=== PATIENT | female | born 1975 | race Caucasian/White ===

== ENCOUNTER 2017-02-18 10:56 | Emergency (ER) | payer MEDICAID, OTHER ==
[~2017-02-18] VITALS: Ht 167.6 cm; Wt 80.0 kg
[~2017-02-18 10:56] MED LIST: FLAG500T PO; FLOVENT110 MCG/A INH
[2017-02-18 10:57] VITALS: BP 132/83; PULSE 88; RESP 16; TEMP 98.1; O2SAT 99
[2017-02-18] MEDS ORDERED: SODIUM CHLOR 0.9% 1000 ML INJ 1,000 ML IV SCH (11:22)
[2017-02-18] MEDS ORDERED: SODIUM CHLORIDE 0.9% FLUSH 10 ML FLUSH IV FLUSH PRN (11:30)
[2017-02-18] MEDS ORDERED: MORPHINE SULFATE 4 MG/ML INJ IV PUSH ONE (11:30)
[2017-02-18] MEDS ORDERED: ONDANSETRON HCL 4 MG/2 ML VIAL IVP ONE (11:30)
--- NOTE | 2017-02-18 11:30 | PD ---
HPI Chief Complaint: Abdominal Pain Time Seen by Provider: 11:26 Travel History International Travel<30 days: No Contact w/Intl Traveler<30days: No Traveled to known affect area: No History of Present Illness HPI 41-year-old female presents to the emergency department for evaluation of right upper quadrant abdominal pain that started on Tuesday, 6 days ago. She states that she saw her primary care physician on Tuesday who was concerned of her gallbladder. Her primary care physician Center for a CT scan of her abdomen/ pelvis without contrast. She had this done at [facility] on Tuesday, 2 days ago. She states that it showed some small kidney stones and ovarian cysts. Patient states the pain has continued. She did vomit on Tuesday. Her primary care physician gave her an antinausea medication which is slightly helping. She states that she caught her primary care physician today who told her she should cut [facility] gallbladder disease. The patient reports chills, but no documented fevers. No chest pain or shortness of breath. She has history tubal ligation. No other abdominal surgeries. She states the pain will occasionally radiate to the right flank. She denies any urinary symptoms. No abnormal vaginal discharge. She drinks occasionally, but does not drink regularly. No illicit drug use. Patient states she did have diarrhea, but this is resolving. She has been on a Russ diet without improvement. She denies any alleviating factors. [facility] Past Medical History Diminished Hearing: No Immunizations Current: Yes Tetanus Vaccination: Unknown Influenza Vaccination: No ?: Not LMP: 01/27/17 : 6 Para: 3 Miscarriage: 3 Dilation and Curettage (D&C): Yes Social History Alcohol Use: Yes (occasionally ) Tobacco Use: No (5 pack years) Substance Use: No (marijuana in the past ) Allergies-Medications (Allergen,Severity, Reaction): Coded Allergies: No Known Allergies (Unverified , 02/18/17) Reported Meds & Prescriptions Reported Meds & Active Scripts Active Flagyl (Metronidazole) 500 Mg Tab 500 Mg PO BID Reported Flovent HFA (Fluticasone Propionate) 110 Mcg Aero 1 Puff INH BID Review of Systems Except as stated in HPI: all other systems reviewed are Neg Physical Exam Narrative GENERAL: Well-nourished, well-developed female patient, afebrile. SKIN: Focused skin assessment warm/dry. HEAD: Normocephalic. Atraumatic. EYES: No scleral icterus. No injection or drainage. NECK: Supple, trachea midline. No JVD or lymphadenopathy. CARDIOVASCULAR: Regular rate and rhythm without murmurs, gallops, or rubs. RESPIRATORY: Breath sounds equal bilaterally. No accessory muscle use. Lungs sounds are clear to auscultation. GASTROINTESTINAL: Abdomen soft and nondistended. Patient has mild tenderness over lower abdomen. She has moderate to severe tenderness over right upper quadrant and moderate tenderness over epigastric region. MUSCULOSKELETAL: No cyanosis, or edema. BACK: Nontender without obvious deformity. No CVA tenderness. Data Data Last Documented VS Vital Signs Date Time Temp Pulse Resp B/P (MAP) Pulse Ox O2 Delivery O2 Flow Rate FiO2 02/18/17 11:44 18 02/18/17 11:41 99 Room Air 02/18/17 10:57 98.1 88 Orders Orders Complete Blood Count With Diff (02/18/17 11:22) Comprehensive Metabolic Panel (02/18/17 11:22) Lipase (02/18/17 11:22) Urinalysis - C+S If Indicated (02/18/17 11:22) Us Abdomen Gallbladder (02/18/17 ) Iv Access Insert/Monitor (02/18/17 11:22) Ecg Monitoring (02/18/17 11:22) Oximetry (02/18/17 11:22) Ondansetron Inj (Zofran Inj) (02/18/17 11:30) Sodium Chlor 0.9% 1000 Ml Inj (Ns 1000 M (02/18/17 11:22) Sodium Chloride 0.9% Flush (Ns Flush) (02/18/17 11:30) Morphine Inj (Morphine Inj) (02/18/17 11:30) Labs Laboratory Tests Test 02/18/17 11:30 White Blood Count 10.6 TH/MM3 Red Blood Count 4.36 MIL/MM3 Hemoglobin 13.2 GM/DL Hematocrit 39.3 % Mean Corpuscular Volume 90.2 FL Mean Corpuscular Hemoglobin 30.3 PG Mean Corpuscular Hemoglobin Concent 33.7 % Red Cell Distribution Width 13.3 % Platelet Count 217 TH/MM3 Mean Platelet Volume 8.9 FL Neutrophils (%) (Auto) 75.2 % Lymphocytes (%) (Auto) 16.3 % Monocytes (%) (Auto) 7.5 % Eosinophils (%) (Auto) 0.6 % Basophils (%) (Auto) 0.4 % Neutrophils # (Auto) 8.0 TH/MM3 Lymphocytes # (Auto) 1.7 TH/MM3 Monocytes # (Auto) 0.8 TH/MM3 Eosinophils # (Auto) 0.1 TH/MM3 Basophils # (Auto) 0.0 TH/MM3 CBC Comment DIFF FINAL Differential Comment Urine Color YELLOW Urine Turbidity HAZY Urine pH 5.5 Urine Specific [place] 1.028 Urine Protein TRACE mg/dL Urine Glucose (UA) NEG mg/dL Urine Ketones 10 mg/dL Urine Occult Blood MOD Urine Nitrite NEG Urine Bilirubin NEG Urine Urobilinogen LESS THAN 2.0 MG/DL Urine Leukocyte Esterase NEG Urine WBC 1 /hpf Urine Squamous Epithelial Cells 4 /hpf Urine Bacteria RARE /hpf Urine Mucus MOD /lpf Microscopic Urinalysis Comment CULT NOT INDICATED Blood Urea Nitrogen 15 MG/DL Creatinine 0.76 MG/DL Random Glucose 96 MG/DL Total Protein 7.3 GM/DL Albumin 3.7 GM/DL Calcium Level 8.6 MG/DL Alkaline Phosphatase 53 U/L Aspartate Amino Transf (AST/SGOT) 12 U/L Alanine Aminotransferase (ALT/SGPT) 20 U/L Total Bilirubin 0.3 MG/DL Sodium Level 137 MEQ/L Potassium Level 4.0 MEQ/L Chloride Level 107 MEQ/L Carbon Dioxide Level 24.0 MEQ/L Anion Gap 6 MEQ/L Estimat Glomerular Filtration Rate 84 ML/MIN Lipase 140 U/L [facility] Medical Decision Making Medical Screen Exam Complete: Yes Emergency Medical Condition: Yes Medical Record Reviewed: Yes Interpretation(s) US gallbladder - CONCLUSION: Negative for gallstones. Differential Diagnosis Cholecystitis versus cholelithiasis versus nephrolithiasis versus pancreatitis Narrative Course 41-year-old female presents to the emergency department for evaluation of right upper quadrant abdominal pain for 6 days, worsening. She recently had CT scan done at [facility]. CBC, CMP, lipase, UA are ordered and pending. Ultrasound of the gallbladder is ordered and pending. Radiology report from [facility] will be obtained. Patient is given normal saline 1 L IV bolus, Zofran 4 mg IV, morphine 4 mg IV. CBC shows no acute abnormality. CMP shows no acute abnormality. Lipase is 140. UA is negative for acute infection. US is negative for gallstones. CT report took a while to be able to be obtained. Once obtained, the impression is bilateral nephrolithiasis and nonobstructive fashion with a 1-2 mm and 2-3 mm stone involving the right and left collecting system respectively , right parapelvic cyst presentation noted as well. No hydronephrosis or hydroureter. Colonic diverticulosis without diverticulitis. Appendix unremarkable. Free fluid seen within the endometrial cavity along with left ovarian or adnexal cystic change. Please correlated menstrual cycle. Follow- up as warranted. I discussed all results with my attending physician, Dr. Schwartz. She came in patient as well. Patient does have a small erythematous area to the right upper quadrant. No other rash. No clear evidence of shingles. Recommend HIDA scan outpatient. She is to follow-up with her primary care physician. She verbalizes agreement and understanding. She'll be discharged with a prescription for Lidoderm patches for pain. Diagnosis Primary Impression: RUQ abdominal pain Referrals: Primary Care Physician 2 days Patient Instructions: Abdominal Pain (ED), General Instructions Additional Instructions: Uses Lidoderm patches as directed as needed for pain. Leave patch on for 12 hours, remove patch for 12 hours before placing another patch. Use in area of most pain. Follow-up with your primary care physician. Return to the emergency department for any acute worsening of symptoms. Med/Other Pt SpecificInfo: Prescription(s) given Scripts Lidocaine Patch 12 HR (Lidocaine Patch 12 HR) 5 % Patch 1 PATCH TOPICAL DAILY Y for PAIN, #1 BOX 0 Refills Remove patch after 12 hours Prov: Vonnie eMlendez 02/18/17 Disposition: 01 DISCHARGE HOME Condition: Stable Vonnie Melendez Feb 18, 2017 11:30
[2017-02-18 11:41] VITALS: O2SAT 99
[2017-02-18 11:44] VITALS: RESP 18
[2017-02-18 12:00] LABS: BASOPHIL % 0.4 % (0.0-2.0); EOSINOPHIL # 0.1 TH/MM3 (0-0.4); EOSINOPHIL % 0.6 % (0.0-4.0); HEMATOCRIT 39.3 % (35.0-46.0); HEMO FLAGS DIFF FINAL; LYMPH % 16.3 % (9.0-44.0); LYMPHOCYTE # 1.7 TH/MM3 (1.0-4.8); MEAN CELL VOLUME 90.2 FL (80.0-100.0); MEAN CORPUSCULAR HEMOGLOBIN 30.3 PG (27.0-34.0); MEAN CORPUSCULAR HGB CONC 33.7 % (32.0-36.0); MONO % 7.5 % (0.0-8.0); NEUT % 75.2 % (16.0-70.0); PLATELET COUNT 217 TH/MM3 (150-450); RED BLOOD COUNT 4.36 MIL/MM3 (4.00-5.30); RED CELL DISTRIBUTION WIDTH 13.3 % (11.6-17.2); WHITE BLOOD COUNT 10.6 TH/MM3 (4.0-11.0)
[2017-02-18 12:10] LABS: ALT (GPT) 20 U/L (10-53); ANION GAP 6 MEQ/L (5-15); AST (GOT) 12 U/L (15-37); BLOOD UREA NITROGEN 15 MG/DL (7-18); CHLORIDE 107 MEQ/L (98-107); GLOMERULAR FILTRATION RATE 84 ML/MIN (>89); SODIUM (NA) 137 MEQ/L (136-145)
[2017-02-18 12:12] LABS: ALKALINE PHOSPHATASE 53 U/L (45-117); BACTERIA, URINE RARE /hpf; BLOOD, URINE MOD (NEG); COMMENT (UR) CULT NOT INDICATED; CULTURE IF INDICATED CULT NOT INDICATED; GLUCOSE,URINE NEG (NEG); KETONE, URINE 10 mg/dL (NEG); MUCUS URINE MOD /lpf (OCC); NITRITE,URINE NEG (NEG); PH, URINE 5.5 (5.0-8.5); SQUAMOUS EPITHELIAL CELL URINE 4 /hpf (0-5); TOTAL BILIRUBIN ADULT 0.3 MG/DL (0.2-1.0); URINE COLOR YELLOW (YELLW/STRAW)
--- NOTE | 2017-02-18 12:25 | RADRPT ---
EXAM DATE/TIME: 02/18/2017 11:41 [place] COMPARISON: No previous studies available for comparison. INDICATIONS : Right upper quadrant pain, nausea and vomiting. MEDICAL HISTORY : Right upper quadrant pain, nausea and vomiting. SURGICAL HISTORY : Tubal ligation. Tonsillectomy. D&C. Breast reduction. ENCOUNTER: Initial ACUITY: 4-6 days PAIN SCORE: 7/10 LOCATION: Right upper quadrant MEASUREMENTS: LIVER: 16.1 cm length COMMON DUCT: 4 mm RIGHT KIDNEY: 13.5 x 5.5 x 5.0 cm FINDINGS: LIVER: Normal echotexture without focal lesion or ductal dilatation. COMMON DUCT: No intraluminal mass or stone visualized. GALLBLADDER: Contains no stones, demonstrates no wall thickening or pericholecystic fluid. PANCREAS: The visualized portions are within normal limits. RIGHT KIDNEY: Small parapelvic cyst CONCLUSION: Negative for gallstones. Epi Sage MD FACR on February 18, 2017 at 12:23 Board Certified Radiologist. This report was verified electronically.
[2017-02-18] MEDS ORDERED: LIDO1PAD52 TOPICAL (15:14)
== END 2017-02-18 15:56 | disposition home or self-care (01) ==
LOC: NEPE 10:56
DX: R10.11 Right upper quadrant pain (principal); F17.200 Nicotine dependence, unspecified, uncomplicated
CPT/HCPCS: 76705; 80053; 81001; 83690; 85025; 96361; 96374; 96375; 99285; J2270; J2405; J7030